=== PATIENT | male | born 1980 | race Caucasian/White ===

== ENCOUNTER 2016-11-25 14:25 | Emergency (ER) | payer OTHER ==
[~2016-11-25] VITALS: Ht 170.2 cm; Wt 95.3 kg
[~2016-11-25 14:25] MED LIST: ANTIVERT25 MG PO; MULTIVITAMIN1 TAB PO; ZYRTEC ALLERGY10 MG PO
[2016-11-25 15:14] VITALS: BP 162/100
--- NOTE | 2016-11-25 16:32 | ED UPPER/LOWER EXTREMITY COMPL ---
History of Present Illness General Chief Complaint: Shoulder Injury Stated Complaint: L SHOULDER PAIN Source: patient Exam Limitations: no limitations Vital Signs & Intake/Output Vital Signs & Intake/Output Vital Signs Date Time Temp Pulse Resp B/P Pulse O2 O2 Flow FiO2 Ox Delivery Rate 11/25 1514 97.6 102 18 162/100 97 Room Air Allergies Uncoded Allergies: ENVIRONMENTAL ALLERGIES (SNEEZING CAN TRIGGER ASTHMA, WATERY ITCHY EYES 07/21/15 ) Reconcile Medications CETIRIZINE HCL (Zyrtec) 10 MG SGL 1 CAP PO DAILY PRN ALLERGIES (Reported) Ketorolac Tromethamine 10 MG TABLET 1 TAB PO TID PRN PAIN Meclizine (Antivert) 25 MG TABLET 1 TAB PO TID PRN dizziness Multivitamin (Multiple Vitamins) 1 TAB TAB 1 TAB PO DAILY SUPPLEMENT ( Reported) Triage Note: REPORTS LEFT ARM PAIN, CURRENTLY UNDER WOKERS COMP FOR THIS INJURY THAT OCCURED ON 11/04/16 WHILE LIFTING A PATIENT. Triage Nurses Notes Reviewed? yes Onset: Gradual Duration: constant Timing: recent history Severity: severe Severity Numbers: 10 Pain/Injury Location: Left: Shoulder. 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 Patient received a MRI AT [facility] showing concern of left infraspinatus rotator cuff tear and concerns of labral tear patient has been followed by with Dr. Fitch in which patient currently is receiving physical therapy and which she woke up today noticing worsening generalized left shoulder pain however at physical therapy today he noticed worsening pain after the session and currently C/O having severe 9 and 10 left shoulder pain nonradiating with no radiating paresthesias. Patient states that left shoulder movements make worse Patient states that while at work today he was unable to perform light duty activities (LEONEL MORSE,ABY) Past History Travel History Traveled to [place] past 21 day No Medical History Any Pertinent Medical History? 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 No (ABY HACKETT) Review of Systems Review of Systems Constitutional: Reports: no symptoms. EENTM: Reports: no symptoms. Respiratory: Reports: no symptoms. Cardiovascular: Reports: no symptoms. Gastrointestinal/Abdominal: Reports: no symptoms. Genitourinary: Reports: no symptoms. Musculoskeletal: Reports: see HPI, joint pain, muscle pain. Skin: Reports: no symptoms. Neurological/Psychological: Reports: no symptoms. Hematologic/Endocrine: Reports: no symptoms. Immunological: Reports: no symptoms. All Other Systems: Reviewed and Negative (ABY HACKETT) Physical Exam Physical Exam General Appearance: no apparent distress, comfortable Neurologic/Tendon: normal sensation, normal motor functions, normal tendon functions, responds to pain, no evidence tendon injury, no pulse deficit Skin: intact, normal color, warm/dry Comments: Well-developed well-nourished no apparent distress. HEENT: Atraumatic, extraocular motion intact Neck: Supple, no lymphadenopathy Back: Nontender Respiratory: No respiratory distress Extremities: Left shoulder normal inspection generalized glenohumeral point tenderness noted, decreased active range of motion noted with 30 of flexion and abduction with pain Left upper extremity dermatomes intact radial pulse +2 Neuro: Alert and oriented x3 Psych: Mood affect normal, normal memory normal judgment. (ABY HACKETT) Progress Differential Diagnosis: arterial insufficiency, compartment syndrome, contusion, dislocation, DVT, fracture, gout, septic arthritis, sprain, tendon injury Plan of Care: Current Medications Sig/Ronald Start time Last Medication Dose Stop Time Status Admin Ketorolac 30 MG ONCE ONE 11/25 1645 UNVr Tromethamine 11/25 1646 (Toradol) Patient denies any mechanism of injury which would require emergent x-rays for patient's symptoms. Patient is known to have rotator cuff and labral injury noted from previous MRI in which patient was strongly advised to follow up with orthopedic doctor. Patient was offered shoulder immobilizer but states he has one at home patient was given ketorolac for his pain and inflammation. Patient' s left upper extremity was neurovascularly intact on discharge (ABY HACKETT) Departure Departure Disposition: HOME OR SELF CARE Condition: Stable Clinical Impression Primary Impression: Left shoulder pain Referrals: GEOVANNI FAJARDOIRINA (PCP/Family) Additional Instructions: As discussed begin icing the area directly 20 minutes every 2 hours. Continue to use your shoulder immobilizer for stability and support. BEGIN the prescription of ketorolac for pain and inflammation. If no better in 3 days follow-up with your orthopedic Dr. Fitch. If symptoms worsen return to emergency room. Prescription is awaiting at [facility]. Departure Forms: Customer Survey General Discharge Information Prescriptions: Current Visit Scripts Ketorolac Tromethamine 1 TAB PO TID PRN PAIN #15 TAB (ABY HACKETT) PA/MARKETING ANALYTICS SPECIALIST Co-Sign Statement Statement: ED Attending supervision documentation- [] I saw and evaluated the patient. I have also reviewed all the pertinent lab results and diagnostic results. I agree with the findings and the plan of care as documented in the PA's/MARKETING ANALYTICS SPECIALIST's documentation. [X] I have reviewed the ED Record and agree with the PA's/MARKETING ANALYTICS SPECIALIST's documentation. [] Additions or exceptions (if any) to the PAs/MARKETING ANALYTICS SPECIALIST's note and plan are summarized below: [] (JENIFER ARGUELLES DO
[2016-11-25] MEDS ORDERED: KETOROLAC TROME10 M1 PO (16:54)
== END 2016-11-25 17:08 ==
LOC: ERH 14:25
DX: M25.512 Pain in left shoulder (principal); X50.0XXA Overexertion from strenuous movement or load, initial encounter; Y93.F9 Activity, other caregiving
CPT/HCPCS: 96372; J1885

== ENCOUNTER 2017-02-07 20:33 | Emergency (ER) | payer OTHER ==
[~2017-02-07] VITALS: Ht 172.7 cm; Wt 95.3 kg
[~2017-02-07 20:33] MED LIST changes: +KETOROLAC TROME10 M1 PO
[2017-02-07 21:06] VITALS: BP 150/92
--- NOTE | 2017-02-07 21:26 | ED UPPER/LOWER EXTREMITY COMPL ---
History of Present Illness General Chief Complaint: Foot or Ankle Injury Stated Complaint: RIGH TFOOT PAIN Source: patient Exam Limitations: no limitations Vital Signs & Intake/Output Vital Signs & Intake/Output Vital Signs Date Time Temp Pulse Resp B/P Pulse O2 O2 Flow FiO2 Ox Delivery Rate 02/07 2106 98.5 101 18 150/92 98 Room Air ED Intake and Output 02/08 0000 02/07 1200 Intake Total Output Total Balance Patient 210 lb Weight Allergies Uncoded Allergies: ENVIRONMENTAL ALLERGIES (SNEEZING CAN TRIGGER ASTHMA, WATERY ITCHY EYES 07/21/15 ) Reconcile Medications CETIRIZINE HCL (Zyrtec) 10 MG SGL 1 CAP PO DAILY PRN ALLERGIES (Reported) Colchicine (Colcrys) 0.6 MG TABLET 1 TAB PO TID GOUT Ketorolac Tromethamine 10 MG TABLET 1 TAB PO TID PRN PAIN Meclizine (Antivert) 25 MG TABLET 1 TAB PO TID PRN dizziness Methylprednisolone. (Medrol) 4 MG TAB.DS.PK 1 DP PO AD INFLAMMATION 6 on day 1 then reduce by one tablet daily until gone Multivitamin (Multiple Vitamins) 1 TAB TAB 1 TAB PO DAILY SUPPLEMENT ( Reported) Triage Note: RECEIVED 36 YO MALE C/O RIGHT FOOT PAIN, SWELLING AND DISCOLORATION X 4 DAYS. NO INJURY NOTED. PT S/P LEFT ROTATOR CUFF REPAIR 01/15. PT WITH HX OF GOUT X ONE EPISODE. Triage Nurses Notes Reviewed? yes Onset: Gradual Duration: getting worse Timing: recent history Severity: severe Severity Numbers: 7 Pain/Injury Location: Right: 1st toe. Method of Injury: unknown HPI: Patient is a 36-year-old male who presents emergent with a four-day history of right great toe pain and surrounding swelling. Patient denies any mechanism of injury. Patient believes that it is gout as he had an episode in the past with no joint aspiration history. Patient has been taking meloxicam and narcotics from previous shoulder surgery with no relief of symptoms. Patient does state that he has been drinking alcohol and eating red meat this whole week. Denies any calf pain. Denies any surrounding erythema or fever or chills (ABY HACKETT) Past History Travel History Traveled to [place] past 21 day No Medical History Any Pertinent Medical History? 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 No (ABY HACKETT) Review of Systems Review of Systems Constitutional: Reports: no symptoms. EENTM: Reports: no symptoms. Respiratory: Reports: no symptoms. Cardiovascular: Reports: no symptoms. Gastrointestinal/Abdominal: Reports: no symptoms. Genitourinary: Reports: no symptoms. Musculoskeletal: Reports: see HPI, joint pain, joint swelling. Skin: Reports: no symptoms. Neurological/Psychological: Reports: no symptoms. Hematologic/Endocrine: Reports: no symptoms. Immunological: Reports: no symptoms. All Other Systems: Reviewed and Negative (ABY HACKETT) Physical Exam Physical Exam General Appearance: no apparent distress, alert, comfortable Neurologic/Tendon: normal sensation, normal motor functions, normal tendon functions, responds to pain, no evidence tendon injury, no pulse deficit Skin: intact, normal color, warm/dry Comments: Well-developed well-nourished no apparent distress. HEENT: Atraumatic, extraocular motion intact Neck: Supple, no lymphadenopathy Back: Nontender Respiratory: No respiratory distress Neuro: Alert and oriented x3 Psych: Mood affect normal, normal memory normal judgment. Diagram Feet Top 1) Noted first MCP swelling and tenderness Mild pink hue No erythema Dermatomes intact capillary refill intact (ABY HACKETT) Progress Differential Diagnosis: arterial insufficiency, compartment syndrome, contusion, dislocation, DVT, fracture, gout, septic arthritis, sprain, tendon injury, GOUT Plan of Care: Orders Procedure Date/time Status Durable Medical Equipment 02/077 Active Patient denies any mechanism of injury in which x-rays are not emergently warranted at this time. Due to history of present illness and exam findings or suspicion of gout patient has previously prescribed NSAIDs and narcotics I applied Darion wrap to the right foot pre-and post-neurovascular was intact crutches were instructed for weightbearing as tolerated Patient was given podiatry follow-up (ABY HACKETT) Departure Departure Disposition: HOME OR SELF CARE Condition: Stable Clinical Impression Primary Impression: Pain of right great toe Secondary Impressions: Gout Referrals: GEOVANNI FAJARDO,IRINA Agrawal (PCP/Family) LEYDI MOTTA DPM Additional Instructions: As discussed begin to elevate THE foot for swelling Began using the Darion wrap for swelling Begin ice in the area directly 20 minutes every 2 hours continue your previously prescribed meloxicam and [place] for pain begin the prescription of colchicine and Medrol Dosepak for inflammation Begin using the crutches until YOU can walk without pain. Please avoid alcohol and red meat as this may worsen your symptoms. If no better in one week follow-up with social media intern Dr. Motta. If symptoms worsen return to emergency room Prescriptions awaiting at [facility] [place] Departure Forms: Customer Survey General Discharge Information Prescriptions: Current Visit Scripts Colchicine (Colcrys) 1 TAB PO TID #9 TAB Methylprednisolone. (Medrol) 1 DP PO AD #1 DP 6 on day 1 then reduce by one tablet daily until gone (ABY HACKETT) PA/PHOTOGRAPH PRINTER Co-Sign Statement Statement: ED Attending supervision documentation- [] I saw and evaluated the patient. I have also reviewed all the pertinent lab results and diagnostic results. I agree with the findings and the plan of care as documented in the PA's/PHOTOGRAPH PRINTER's documentation. [X] I have reviewed the ED Record and agree with the PA's/PHOTOGRAPH PRINTER's documentation. [] Additions or exceptions (if any) to the PAs/PHOTOGRAPH PRINTER's note and plan are summarized below: [] (LARISA FAJARDO,PLACIDO Cole)
[2017-02-07] MEDS ORDERED: MEDROL4 M2 PO (21:55)
[2017-02-07] MEDS ORDERED: COLCRYS0.6 M1 PO (21:55)
== END 2017-02-07 22:13 ==
LOC: ERH 20:33
DX: M10.9 Gout, unspecified (principal)